=== PATIENT | male | born 1970 | race Caucasian/White ===

== ENCOUNTER → 2016-12-05 | Outpatient (CLI) | payer OTHER ==
[~2016-12-05] MED LIST: OMEP20TA62 PO; ZOLP-413 PO
[2016-12-05 11:59] LABS: HEMATOCRIT 47.6 % (39.2-51.8); HEMOGLOBIN 16.2 g/dL (13.7-18.0); WHITE BLOOD COUNT 8.3 x10^3/uL (3.4-10)
[2016-12-05 12:07] LABS: ASPARTATE AMINO TRANSFERASE 18 U/L (15-37); BLOOD UREA NITROGEN 13 mg/dL (7-18)
== END | disposition home or self-care (01) ==
LOC: STAR 10:44
PROVIDERS: ATTEND Urology
DX: Z01.818 Encounter for other preprocedural examination (principal); N20.0 Calculus of kidney
CPT/HCPCS: 36415; 80053; 81003; 85025; 87086

== ENCOUNTER → 2016-12-06 | Outpatient (CLI) | payer OTHER | END | disposition home or self-care (01) | LOC: CFH 12:26 | PROVIDERS: ATTEND Urology | DX: N20.2 Calculus of kidney with calculus of ureter (principal) | CPT/HCPCS: 74176 ==

== ENCOUNTER 2016-12-10 05:36 | Day surgery (SDC) | payer OTHER ==
[2016-12-05 11:07] VITALS: BP 124/86
[~2016-12-10] VITALS: Ht 172.7 cm; Wt 85.4 kg
[2016-12-10] MEDS ORDERED: LIDOCAINE 1%, 2ML ONE (06:12)
[2016-12-10] MEDS ORDERED: MIDAZOLAM 1 MG/ML, 2ML ONE (07:21)
[2016-12-10] MEDS ORDERED: FENTANYL PF 100 MCG/2ML ONE ×2 (07:21→08:44)
[2016-12-10] MEDS ORDERED: PROPOFOL 10 MG/ML, 20ML ONE (07:27)
[2016-12-10] MEDS ORDERED: SUCCINYLCHOLINE 20 MG/ML, 10ML ONE (07:27)
[2016-12-10] MEDS ORDERED: ROCURONIUM 10 MG/ML ONE (07:27)
[2016-12-10] MEDS ORDERED: ONDANSETRON 2MG/ML, 2ML ONE (07:27)
[2016-12-10] MEDS ORDERED: DEXAMETHASONE 4 MG/ML, 1ML ONE (07:27)
[2016-12-10] MEDS ORDERED: CEFAZOLIN 1,000 MG ONE (07:27)
[2016-12-10] MEDS ORDERED: ACETAMINOPHEN 325 MG TABLET PO PRN (08:00)
[2016-12-10] MEDS ORDERED: MEPERIDINE/PF 25MG/0.5ML IVPush PRN (08:00)
[2016-12-10] MEDS ORDERED: hydrALAzine 20 MG/ML, 1ML IV PRN (08:00)
[2016-12-10] MEDS ORDERED: HYDROmorphone 1 MG/ML, 1ML IV PRN (08:00)
[2016-12-10] MEDS ORDERED: LABETALOL 5MG/ML, 20ML IV PRN (08:00)
[2016-12-10] MEDS ORDERED: OXYcodone 5 MG/5 ML ORAL.SOL UDC PO PRN (08:00)
[2016-12-10] MEDS ORDERED: ONDANSETRON 2MG/ML, 2ML IVPush PRN (08:00)
[2016-12-10] MEDS ORDERED: MIDAZOLAM 1 MG/ML, 2ML IV PRN (08:00)
[2016-12-10] MEDS ORDERED: ALBUTEROL SULFATE 2.5 MG/3 ML NPPB PRN (08:00)
[2016-12-10] MEDS ORDERED: PROMETHAZINE 25 MG/ML, 1ML IV PRN (08:00)
[2016-12-10] MEDS ORDERED: ACETAMINOPHEN 325 MG TABLET ONE (08:44)
[2016-12-10] MEDS ORDERED: OXYcodone 5 MG/5 ML ORAL.SOL UDC ONE (08:44)
[2016-12-10] MEDS ORDERED: ACETAMINOPHEN 650 MG/20.3 ML UDC ONE (08:44)
[2016-12-10] MEDS: FENTANYL PF 100 MCG/2ML IV PRN ×3 (08:48→09:12)
== END 2016-12-10 10:40 ==
LOC: OUT 05:36
PROVIDERS: ATTEND Urology
DX: N20.1 Calculus of ureter (principal); K21.9 Gastro-esophageal reflux disease without esophagitis; Z88.5 Allergy status to narcotic agent; Z72.89 Other problems related to lifestyle
CPT/HCPCS: 52353; 74000; 76000; C1758; C1769; J0330; J0690; J1100; J2250; J2405; J2704; J3010